=== PATIENT | female | born 1945 | race African-American/Black ===

== ENCOUNTER 2020-09-05 12:23 | Emergency (ER) | payer OTHER ==
[2020-09-05 13:08] VITALS: BP 103/73; PULSE 107; TEMP 99.4; BMI 22.2
[2020-09-05] MEDS ORDERED: LACTATED RINGERS SOLUTION 1000 ML INFUS.BAG IV ONE (13:25)
[2020-09-05] MEDS ORDERED: SODIUM CHLORIDE 1,000 ML IV SCH (13:30)
[2020-09-05 14:25] LABS: BASO % 0.5 % (0-2.0); HEMATOCRIT 43.2 % (32.4-45.2); HEMOGLOBIN 14.7 GM/dL (10.7-15.3); LYMPH % 13.5 % (8-40); MCH 30.6 pg (25.7-33.7); MEAN CELL VOLUME 90.1 fl (80-96); MONO % 6.6 % (3.8-10.2); NEUT % 79.4 % (42.8-82.8); PLATELET COUNT 207 K/MM3 (134-434); RDW 14.8 % (11.6-15.6); WHITE BLOOD COUNT 5.2 K/mm3 (4.0-10.0)
[2020-09-05 14:35] LABS: INR 1.02 (0.83-1.09); PROTHROMBIN TIME (PATIENT) 12.3 SEC (9.7-13.0)
[2020-09-05 14:38] LABS: ACTIVATED PTT 31.7 SECONDS (25.2-36.5)
[2020-09-05 14:44] LABS: EPI CELLS 12 /uL (0-25.1); HYALINE CASTS 1 /uL (0-3.1); URINE APPEARANCE CLEAR; URINE BACTERIA 228 /uL (0-1359); URINE BILIRUBIN NEGATIVE (NEGATIVE); URINE COLOR YELLOW; URINE GLUCOSE (UA) 3+ (NEGATIVE); URINE KETONE 1+ (NEGATIVE); URINE LEUK ESTERASE NEGATIVE (NEGATIVE); URINE NITRITE NEGATIVE (NEGATIVE); URINE PROTEIN 1+ (NEGATIVE); URINE RBC 11 /uL (0-23.9); URINE UROBILINOGEN 0.2 mg/dL (0.2-1.0); URINE WBC 36 /uL (0-25.8)
[2020-09-05 14:54] LABS: CHLORIDE 103 mmol/L (98-107); POTASSIUM 5.5 mmol/L (3.5-5.1); SODIUM 137 mmol/L (136-145)
[2020-09-05 14:56] LABS: CALCIUM 9.1 mg/dL (8.5-10.1)
[2020-09-05 14:57] LABS: ALBUMIN 3.4 g/dl (3.4-5.0); ANION GAP 7 MMOL/L (8-16); BLOOD UREA NITROGEN 18.9 mg/dL (7-18); CO2 27 mmol/L (21-32); GLUCOSE,RANDOM 91 mg/dL (74-106)
[2020-09-05 14:59] LABS: TRIGLYCERIDES 131 mg/dL (0-150)
[2020-09-05 15:00] LABS: CHOLESTEROL 176 mg/dL (50-200); SGOT/AST 48 U/L (15-37); SGPT/ALT 26 U/L (13-61)
[2020-09-05 15:01] LABS: LDL CHOLESTEROL (ONLY SJRH) 87 mg/dL (5-100); TOT PROT 7.2 g/dl (6.4-8.2)
[2020-09-05 15:02] LABS: HDL CHOLESTEROL 69 mg/dL (40-60)
[2020-09-05 15:03] LABS: ALK PHOS 96 U/L (45-117); BILIRUBIN,TOTAL 0.5 mg/dL (0.2-1)
[2020-09-05 18:23] LABS: POTASSIUM 4.4 mmol/L (3.5-5.1)
[2020-09-05 18:24] LABS: CALCIUM 8.8 mg/dL (8.5-10.1)
[2020-09-05 18:25] LABS: BLOOD UREA NITROGEN 16.6 mg/dL (7-18)
[2020-09-05 18:28] LABS: CREATININE 0.9 mg/dL (0.55-1.3)
[2020-09-05] MEDS ORDERED: CEFTRIAXONE 1,000 MG in DEXTROSE 5%-WATER - 50 ML IVPB ONE (18:52)
[2020-09-05] MEDS ORDERED: ACETAMINOPHEN 1000 MG/100 ML VIAL (NON FORMULARY) IVPB ONE (18:54)
[2020-09-05] MEDS ORDERED: ACETAMINOPHEN 325 MG TABLET (FP) PO ONE (18:56)
[2020-09-05] MEDS ORDERED: CEPHALEXIN MONOHYDRATE 500 MG CAPSULE (UD) PO ONE (18:56)
[2020-09-05] MEDS ORDERED: CEPHALEXIN MONOHYDRATE 500 MG CAPSULE (UD) ONE (19:00)
[2020-09-05] MEDS ORDERED: ACETAMINOPHEN 325 MG TABLET (FP) ONE (19:00)
== END 2020-09-05 19:10 | disposition left against medical advice (07) ==
LOC: JER 12:23
DX: R53.1 Weakness (principal); E86.0 Dehydration; N39.0 Urinary tract infection, site not specified
CPT/HCPCS: 36415; 70450-TC; 80048; 80053; 80061; 81003; 82550; 82553; 83721; 84484; 85025; 85610; 85730; 86850; 86900; 86901; 93005; 93010; 99285-25; C9803; U0003

== ENCOUNTER 2020-12-16 04:45 | Day surgery (SDC) | payer OTHER ==
[2020-12-13 11:52] VITALS: BMI 22.2
[2020-12-16 08:37] LABS: BASO % 0.8 % (0-2.0); EOS % 1.9 % (0-4.5); HEMATOCRIT 44.8 % (32.4-45.2); LYMPH % 38.6 % (8-40); MCH 30.8 pg (25.7-33.7); MCHC 33.4 g/dl (32.0-36.0); MEAN CELL VOLUME 92.1 fl (80-96); MEAN PLT VOLUME 8.4 fl (7.5-11.1); MONO % 9.3 % (3.8-10.2); NEUT % 49.4 % (42.8-82.8); PLATELET COUNT 246 K/MM3 (134-434); RBC 4.87 M/mm3 (3.60-5.2)
[2020-12-16 08:46] LABS: INR 0.9 (0.83-1.09); PROTHROMBIN TIME (PATIENT) 11.1 SEC (9.7-13.0)
[2020-12-16 16:34] VITALS: BP 112/80; PULSE 90; TEMP 98.2
== END 2020-12-16 14:11 | disposition home or self-care (01) ==
LOC: JRADIR 04:45
PROVIDERS: ATTEND Internal Medicine Pulmonary Disease
PROC: 0BBC3ZX Excision of Right Upper Lung Lobe, Percutaneous Approach, Diagnostic (ICD-10-PCS; principal; 2020-12-16)
DX: J98.4 Other disorders of lung (principal)
CPT/HCPCS: 32408; 36415; 71045-TC-FY; 77012-TC; 85025; 85610; 87070; 87075; 87116; 87205; 87206; 88172; 88173; 88305-TC; 88312-TC

== ENCOUNTER 2023-09-30 05:03 | Day surgery (SDC) | payer OTHER ==
[2023-09-24 11:33] VITALS: BMI 21.4
[2023-09-30 11:38] VITALS: RESP 18; TEMP 98.6
[2023-09-30 12:09] VITALS: PULSE 90
[2023-09-30 12:13] VITALS: BP 105/71
== END 2023-09-30 12:12 | disposition home or self-care (01) ==
LOC: JASU-ENDO 05:03
PROVIDERS: ATTEND Internal Medicine Gastroenterology
PROC: 0DJD8ZZ Inspection of Lower Intestinal Tract, Via Natural or Artificial Opening Endoscopic (ICD-10-PCS; principal; 2023-09-30 10:30)
DX: Z12.11 Encounter for screening for malignant neoplasm of colon (principal); K57.30 Diverticulosis of large intestine without perforation or abscess without bleeding; K64.8 Other hemorrhoids